=== PATIENT | female | born 1980 | race Caucasian/White ===

== ENCOUNTER → 2018-07-16 | Outpatient (CLI) | payer BC | LOC: FIMAGING 11:32 | PROVIDERS: ATTEND Obstetrics & Gynecology | DX: O09.522 Supervision of elderly multigravida, second trimester (principal); Z3A.19 19 weeks gestation of pregnancy; Z98.891 History of uterine scar from previous surgery ==

== ENCOUNTER 2018-11-04 06:39 | Observation (INO) | payer BC | END 2018-11-04 12:37 | disposition home or self-care (01) | LOC: FLD 06:39 ==